=== PATIENT | female | born 1980 | race Caucasian/White ===

== ENCOUNTER 2016-06-21 12:48 | Outpatient (RCR) | END 2016-08-02 10:25 | disposition home or self-care (01) | LOC: PT 12:48 | DX: M54.5 Low back pain (principal); M25.561 Pain in right knee ==

== ENCOUNTER → 2016-11-22 | Outpatient (REF) | LOC: LAB 11:59 | DX: R10.13 Epigastric pain (principal); R19.5 Other fecal abnormalities ==